=== PATIENT | female | born 1970 | race Caucasian/White ===

== ENCOUNTER 2019-08-06 18:56 | Emergency (ER) | payer OTHER ==
[~2019-08-06] VITALS: Ht 144.8 cm; Wt 69.4 kg
[2019-08-06] MEDS ORDERED: HYZAAR 100-251 EACH (19:15)
[2019-08-06] MEDS ORDERED: HYDROCHLOROTHIAZIDE (19:21)
== END 2019-08-06 21:41 | disposition home or self-care (01) ==
LOC: ER 18:56
DX: B34.9 Viral infection, unspecified (principal); B96.0 Mycoplasma pneumoniae [M. pneumoniae] as the cause of diseases classified elsewhere

== ENCOUNTER 2019-11-21 18:26 | Emergency (ER) | payer OTHER ==
[~2019-11-21] VITALS: Ht 144.8 cm; Wt 67.1 kg
[~2019-11-21 18:26] MED LIST: HYDROCHLOROTHIAZIDE; HYZAAR 100-251 EACH
== END 2019-11-21 21:49 | disposition home or self-care (01) ==
LOC: ER 18:26
DX: D64.89 Other specified anemias (principal); R20.2 Paresthesia of skin

== ENCOUNTER 2019-11-28 12:58 | Emergency (ER) | payer OTHER ==
[~2019-11-28] VITALS: Ht 144.8 cm; Wt 67.1 kg
[2019-11-28] MEDS ORDERED: HYDROCHLOROTHIA25 MG (13:22)
== END 2019-11-28 17:36 | disposition home or self-care (01) ==
LOC: ER 12:58
DX: G45.8 Other transient cerebral ischemic attacks and related syndromes (principal); I10 Essential (primary) hypertension

== ENCOUNTER 2020-06-21 20:53 | Emergency (ER) | payer OTHER ==
[~2020-06-21] VITALS: Ht 144.8 cm; Wt 71.7 kg
[~2020-06-21 20:53] MED LIST changes: +HYDROCHLOROTHIA25 MG
[2020-06-21] MEDS ORDERED: PROAIR RESPICL90 MCG IH (21:30)
[2020-06-22] MEDS ORDERED: CARDURA1 MG PO (10:18)
[2020-06-22] MEDS ORDERED: ALBUTEROL0.63 MG/3 IH (10:18)
[2020-06-22] MEDS ORDERED: COZAAR100 MG PO (10:18)
[2020-06-22] MEDS ORDERED: PROAIR RESPICL90 MCG IH (10:18)
[2020-06-22] MEDS ORDERED: HYDROCHLOROTHIA25 MG PO (10:18)
== END 2020-06-22 11:37 | disposition home or self-care (01) ==
LOC: ER 20:53 → CPU-OBS 21:09 → ER 21:09
DX: I16.0 Hypertensive urgency (principal); I10 Essential (primary) hypertension; R07.89 Other chest pain; J44.1 Chronic obstructive pulmonary disease with (acute) exacerbation
CPT/HCPCS: G0378; G0379; 93005; 82805; 36600; 71250

== ENCOUNTER 2022-07-14 20:51 | Emergency (ER) | payer OTHER ==
[~2022-07-14] VITALS: Ht 144.8 cm; Wt 72.6 kg
[~2022-07-14 20:51] MED LIST changes: +ALBUTEROL0.63 MG/3 IH; +CARDURA1 MG PO; +COZAAR100 MG PO; +HYDROCHLOROTHIA25 MG PO; +PROAIR RESPICL90 MCG IH
[2022-07-15] MEDS ORDERED: ANTIFUNGAL113 GM TOP (10:23)
[2022-07-15] MEDS ORDERED: LOSARTAN-HCTZ1 EAC2 PO (10:23)
== END 2022-07-15 10:29 ==
LOC: ER 20:51
DX: I10 Essential (primary) hypertension (principal); J45.909 Unspecified asthma, uncomplicated; Z88.8 Allergy status to other drugs, medicaments and biological substances; Z20.822 Contact with and (suspected) exposure to COVID-19

== ENCOUNTER 2024-07-11 15:30 | Emergency (ER) | payer OTHER ==
[~2024-07-11] VITALS: Ht 146.1 cm; Wt 77.1 kg
[~2024-07-11 15:30] MED LIST changes: +ANTIFUNGAL113 GM TOP; +LOSARTAN-HCTZ1 EAC2 PO
[2024-07-11] MEDS ORDERED: METFORMIN HCL1000 MG PO (18:13)
[2024-07-11 20:40] LABS: HEMATOCRIT 39.4 % (36.0-45.00); MEAN CELL VOLUME 81.8 fL (80.00-100.00); MEAN CORPUSCULAR HEMOGLOBIN 27.1 pg (27.00-32.0); MEAN CORPUSCULAR HGB CONC 33.1 g/dl (32.0-36.0); PLATELET COUNT 280 K/uL (150-450); RED BLOOD COUNT 4.82 M/uL (4.00-6.00); RED CELL DISTRIBUTION WIDTH 12.9 % (11.5-14.5)
[2024-07-11 21:19] LABS: ALBUMIN 3.6 gm/dL (3.4-5.0); BILIRUBIN TOTAL 0.35 mg/dL (0.3-1.2); CALCIUM 9.6 mg/dL (8.5-10.1); CREATININE SERUM 0.9 mg/dL (0.55-1.02); GFR 64.77; GLOBULINA 4.1 G/DL (2.4-3.5); POTASSIUM 4.12 mEq/L (3.5-5.1); TOTAL PROTEIN 7.7 gm/dL (6.4-8.2)
[2024-07-11] MEDS ORDERED: 0.9 % SODIUM CHLORIDE 500 ML IV ONE (21:45)
[2024-07-11] MEDS ORDERED: INSULIN REGULAR, HUMAN 1,000 UNIT/10 ML UNITS SUBCUTANEO ONE (21:45)
[2024-07-12] MEDS ORDERED: INSULIN REGULAR, HUMAN 1,000 UNIT/10 ML UNITS IV ONE (00:05)
[2024-07-12 03:00] LABS: INR 0.94; PARTIAL THROMBOPLASTIN TIME 24.8 SECONDS (22.0-34.0); PROTHROMBIN TIME 10.3 SECONDS (9.0-11.5)
[2024-07-12 03:06] LABS: PH,URINE 5.5 (5.0-8.0); URINE APPEARANCE Cloudy; URINE BILIRRUBIN Negative (NEGATIVE); URINE BLOOD Negative; URINE COLOR Yellow; URINE KETONE Negative (NEGATIVE); URINE LEUKOCYTE Negative; URINE NITRATE Negative; URINE UROBILINOGEN 0.2 E.U./dl
[2024-07-12 03:09] LABS: URINE BACTERIA 1246.9 uL (0.0-1933); URINE EPITHELIAL CELLS 9.9 uL (0.0-38.8); URINE RBC 5.8 uL (0.0-20.8); URINE WBC 110.4 uL (0.0-23.2)
[2024-07-12 03:18] LABS: URINE CAST 0.29 uL (0.0-1.40); URINE GLUCOSE >=1000 MG/DL (NEGATIVE); URINE PROTEIN 100 (NEGATIVE)
[2024-07-12] MEDS ORDERED: NEURONTIN300 MG PO (11:09)
== END 2024-07-12 12:11 | disposition home or self-care (01) ==
LOC: ER 15:33
PROVIDERS: General Practice; Preventive Medicine Public Health & General Preventive Medicine
DX: R20.2 Paresthesia of skin (principal); R29.898 Other symptoms and signs involving the musculoskeletal system; E11.9 Type 2 diabetes mellitus without complications; Z79.4 Long term (current) use of insulin; I10 Essential (primary) hypertension; Z88.8 Allergy status to other drugs, medicaments and biological substances

== ENCOUNTER 2025-01-07 21:08 | Emergency (ER) | payer OTHER ==
[~2025-01-07] VITALS: Ht 160 cm; Wt 78.0 kg
[~2025-01-07 21:08] MED LIST changes: +METFORMIN HCL1000 MG PO; +NEURONTIN300 MG PO
[2025-01-07] MEDS ORDERED: ENALAPRILAT DIHYDRATE 2.5 MG/2 ML VIAL IV STA (22:10)
[2025-01-07] MEDS ORDERED: CLONIDINE HCL 0.1 MG TABLET PO ONE (22:28)
[2025-01-07] MEDS ORDERED: ENALAPRILAT DIHYDRATE 1.25 MG/ML VIAL IV ONE ×2 (22:28→23:14)
[2025-01-07 23:07] LABS: BASO % 0.5 % (0.1-1.2); EOS # 0.12 (0.04-0.54); EOS % 1.4 % (0.7-7.0); LYMPH # 2.78 (1.18-3.74); LYMPH % 31.5 % (19.3-53.1); MEAN PLATELET VOLUME 11.10 fl (9.4-12.4); MONO # 0.48 (0.24-0.82); MONO % 5.4 % (4.7-12.5); NEUT # 5.36 (1.56-6.13); NEUT % 60.6 % (34.0-71.1); RED CELL DISTRIBUTION WIDTH 12.4 % (11.6-14.4)
[2025-01-07 23:31] LABS: ALT/SGPT 32.0 U/L (12-78); AST/SGOT 17.0 U/L (15-37); BILIRUBIN TOTAL 0.25 mg/dL (0.3-1.2); BUN CREA RATIO 14.0 (7.0-25.0); CREATININE SERUM 1.18 mg/dL (0.55-1.02); GLOBULINA 4.1 G/DL (2.4-3.5); GLUCOSE FASTING 185.0 mg/dL (65-100); OSMOLALITY SERUM 291.0 MOSM/KG (275-295)
[2025-01-07 23:38] LABS: GFR 47.38
[2025-01-08] MEDS ORDERED: MELOXICAM15 MG PO (03:42)
== END 2025-01-08 04:46 ==
LOC: ER 21:15
PROVIDERS: General Practice
DX: M25.561 Pain in right knee (principal); M25.562 Pain in left knee; M54.89 Other dorsalgia; E11.9 Type 2 diabetes mellitus without complications; Z79.84 Long term (current) use of oral hypoglycemic drugs; I10 Essential (primary) hypertension; Z20.822 Contact with and (suspected) exposure to COVID-19

== ENCOUNTER 2025-01-09 02:59 | Emergency (ER) | payer OTHER ==
[~2025-01-09] VITALS: Ht 152.4 cm; Wt 63.5 kg
[~2025-01-09 02:59] MED LIST changes: +MELOXICAM15 MG PO
[2025-01-09 03:23] VITALS: BP 170/90
[2025-01-09] MEDS ORDERED: TRAMADOL HCL 50 MG TABLET PO STA (03:56)
[2025-01-09] MEDS ORDERED: KETOROLAC TROMETHAMINE 60 MG VIAL IM ONE ×3 (03:59→04:01)
[2025-01-09 04:45] LABS: BASO % 0.4 % (0.1-1.2); EOS # 0.02 (0.04-0.54); EOS % 0.1 % (0.7-7.0); LYMPH # 2.62 (1.18-3.74); LYMPH % 18.7 % (19.3-53.1); MEAN PLATELET VOLUME 11.10 fl (9.4-12.4); MONO # 1.00 (0.24-0.82); MONO % 7.1 % (4.7-12.5); NEUT # 10.21 (1.56-6.13); NEUT % 73.1 % (34.0-71.1); RED CELL DISTRIBUTION WIDTH 12.5 % (11.6-14.4)
[2025-01-09] MEDS ORDERED: CHLORHEXIDINE GLUCONATE 120 ML BOTTLE TOP ONE (05:21)
[2025-01-09 05:27] LABS: INR 1.08
[2025-01-09 05:28] LABS: ALT/SGPT 34.0 U/L (12-78); AST/SGOT 48.0 U/L (15-37); BILIRUBIN TOTAL 0.87 mg/dL (0.3-1.2); BUN CREA RATIO 16.0 (7.0-25.0); CREATININE SERUM 1.02 mg/dL (0.55-1.02); GFR 56.06; GLOBULINA 3.9 G/DL (2.4-3.5); GLUCOSE FASTING 173.0 mg/dL (65-100); OSMOLALITY SERUM 292.0 MOSM/KG (275-295)
[2025-01-09 14:34] VITALS: O2SAT 98
== END 2025-01-09 14:36 | disposition home or self-care (01) ==
LOC: ER 02:59
DX: S70.01XA Contusion of right hip, initial encounter (principal); S70.11XA Contusion of right thigh, initial encounter; W18.39XA Other fall on same level, initial encounter; Y93.89 Activity, other specified; Y92.89 Other specified places as the place of occurrence of the external cause; Y99.9 Unspecified external cause status; E11.9 Type 2 diabetes mellitus without complications; Z79.84 Long term (current) use of oral hypoglycemic drugs; Z88.8 Allergy status to other drugs, medicaments and biological substances

== ENCOUNTER 2025-01-10 05:31 | Inpatient (IN) | payer OTHER ==
[~2025-01-10] VITALS: Ht 144.8 cm; Wt 78.0 kg
[2025-01-10 08:16] LABS: BASO % 0.6 % (0.1-1.2); EOS # 0.14 (0.04-0.54); EOS % 1.7 % (0.7-7.0); LYMPH # 2.32 (1.18-3.74); LYMPH % 28.4 % (19.3-53.1); MEAN PLATELET VOLUME 11.10 fl (9.4-12.4); MONO # 0.47 (0.24-0.82); MONO % 5.8 % (4.7-12.5); NEUT # 5.13 (1.56-6.13); NEUT % 62.9 % (34.0-71.1); RED CELL DISTRIBUTION WIDTH 12.6 % (11.6-14.4)
[2025-01-10 08:38] LABS: URINE APPEARANCE Cloudy; URINE BILIRRUBIN Negative (NEGATIVE); URINE BLOOD Small; URINE COLOR Yellow; URINE GLUCOSE Negative (NEGATIVE); URINE KETONE 15 (NEGATIVE); URINE LEUKOCYTE Small; URINE NITRATE Positive; URINE UROBILINOGEN 1.0 E.U./dl
[2025-01-10 08:39] LABS: URINE CAST 3.51 uL (0.0-1.40); URINE EPITHELIAL CELLS 19.2 uL (0.0-38.8); URINE RBC 31.8 uL (0.0-20.8); URINE WBC 147.6 uL (0.0-23.2)
[2025-01-10 09:02] LABS: COCAINE NEGATIVE (NEGATIVE); METHADONE NEGATIVE (NEGATIVE); OPIATES NEGATIVE (NEGATIVE); THC ( Cannabinoids) NEGATIVE (NEGATIVE)
[2025-01-10 09:07] LABS: ALT/SGPT 36.0 U/L (12-78); AST/SGOT 42.0 U/L (15-37); BILIRUBIN TOTAL 0.84 mg/dL (0.3-1.2); BUN CREA RATIO 21.0 (7.0-25.0); CREATININE SERUM 0.85 mg/dL (0.55-1.02); GFR 69.18; GLOBULINA 3.2 G/DL (2.4-3.5); GLUCOSE FASTING 165.0 mg/dL (65-100); OSMOLALITY SERUM 289.0 MOSM/KG (275-295); PHOSPHOKINASE CREATININE 1357.0 U/L (26-192)
[2025-01-10 09:33] LABS: URINE BACTERIA > 9821.5 uL (0.0-1933); URINE PROTEIN 300 (NEGATIVE)
[2025-01-10 09:34] LABS: TYPE CELLS SQUAMOUS
[2025-01-10] MEDS ORDERED: CEFTRIAXONE SODIUM 2,000 MG VIAL ONE (09:56)
[2025-01-10] MEDS ORDERED: 0.9 % SODIUM CHLORIDE 1,000 ML IV SCH (10:00)
[2025-01-10] MEDS ORDERED: CEFTRIAXONE SODIUM 2,000 MG VIAL IV ONE (10:00)
[2025-01-10] MEDS ORDERED: ORPHENADRINE CITRATE 30 MG/ML AMPUL IM ONE (14:00)
[2025-01-10] MEDS ORDERED: ORPHENADRINE CITRATE 30 MG/ML AMPUL ONE (14:13)
[2025-01-10] MEDS ORDERED: CLONIDINE HCL 0.1 MG TABLET PO ONE (16:53)
[2025-01-10] MEDS ORDERED: CLONIDINE HCL 0.1 MG TABLET PO STA (16:54)
[2025-01-11] MEDS ORDERED: TRAMADOL HCL 50 MG TABLET PO ONE (09:00)
[2025-01-11] MEDS ORDERED: FAMOtidine 10 MG/ML (4ML VIAL) IV SCH (09:04)
[2025-01-11] MEDS ORDERED: SULFAMETHOXAZOLE/TRIMETHOPRIM DS 1 TAB PO SCH (09:04)
[2025-01-11] MEDS ORDERED: FAMOTIDINE/PF 20 MG/2 ML VIAL ONE (09:15)
[2025-01-11] MEDS ORDERED: LOSARTAN/HYDROCHLOROTHIAZIDE 1 TAB TABLET PO SCH (09:20)
[2025-01-11 11:09] LABS: INR 1.03
[2025-01-11] MEDS ORDERED: ATORVASTATIN CALCIUM 40 MG TABLET PO SCH (17:14)
[2025-01-11] MEDS ORDERED: CEFTRIAXONE SODIUM 2,000 MG in 0.9 % SODIUM CHLORIDE 100 ML IV SCH (17:14)
[2025-01-11] MEDS ORDERED: ACETAMINOPHEN 500 MG GEL..CAP PO PRN (17:15)
[2025-01-11] MEDS ORDERED: DEXTROSE 50 % IN WATER 0.5 G/ML DISP.SYRIN IV PRN (17:30)
[2025-01-11] MEDS ORDERED: 0.9 % SODIUM CHLORIDE 1,000 ML IV SCH (17:30)
[2025-01-11] MEDS ORDERED: INSULIN LISPRO 1,000 UNIT/10 ML UNITS SUBCUTANEO PRN (17:30)
[2025-01-11] MEDS ORDERED: ENALAPRILAT DIHYDRATE 1.25 MG/ML VIAL IV PRN (18:00)
[2025-01-11] MEDS ORDERED: CEFTRIAXONE SODIUM 2,000 MG VIAL ONE (19:18)
[2025-01-11 19:33] LABS: D DIMER 0.42 MG/L
[2025-01-11 19:34] LABS: INR 1.01
[2025-01-11 19:55] VITALS: BP 145/70
[2025-01-11 20:38] LABS: URINE APPEARANCE Clear; URINE BILIRRUBIN Negative (NEGATIVE); URINE BLOOD Small; URINE COLOR Yellow; URINE GLUCOSE Negative (NEGATIVE); URINE KETONE Negative (NEGATIVE); URINE LEUKOCYTE Trace; URINE NITRATE Negative; URINE PROTEIN 30 (NEGATIVE); URINE UROBILINOGEN 1.0 E.U./dl
[2025-01-11 20:40] LABS: URINE BACTERIA 760.8 uL (0.0-1933); URINE CAST 1.46 uL (0.0-1.40); URINE EPITHELIAL CELLS 7.0 uL (0.0-38.8); URINE RBC 53.0 uL (0.0-20.8); URINE WBC 71.0 uL (0.0-23.2)
[2025-01-11 23:56] VITALS: BP 172/52; O2SAT 98
[2025-01-12] VITALS (15 sets, daily range): BP systolic 142–189; BP diastolic 55–83; O2SAT 94–98
[2025-01-12] MEDS ORDERED: ENALAPRILAT DIHYDRATE 1.25 MG/ML VIAL IV ONE ×2 (00:39→13:51)
[2025-01-12] MEDS ORDERED: AMLODIPINE BESYLATE 5 MG TABLET PO ONE (02:15)
[2025-01-12] MEDS ORDERED: LOSARTAN POTASSIUM 100 MG TABLET PO STA (05:56)
[2025-01-12] MEDS ORDERED: AMLODIPINE BESYLATE 5 MG TABLET PO STA (05:56)
[2025-01-12 06:47] LABS: CHOL HDL RATIO 6.9 (0-5.0)
[2025-01-12 06:53] LABS: HDL 29.0 mg/dl (40-60); LDL 98.0 mg/dl (0-130); TSH 5.12 uIU/mL (0.358-3.74); VLDL 74.0 (0-39)
[2025-01-12] MEDS ORDERED: FAMOTIDINE/PF 20 MG in 0.9 % SODIUM CHLORIDE 8 ML IV PUSH SCH (09:00)
[2025-01-12] MEDS ORDERED: ORPHENADRINE CITRATE 30 MG/ML AMPUL IV STA (13:07)
[2025-01-12] MEDS ORDERED: ORPHENADRINE CITRATE 30 MG/ML AMPUL ONE (13:51)
[2025-01-12] MEDS ORDERED: CAPTOPRIL 12.5 MG TABLET PO SCH (17:00)
[2025-01-12] MEDS ORDERED: ORPHENADRINE CITRATE 30 MG/ML AMPUL IV SCH (21:00)
[2025-01-13] VITALS (9 sets, daily range): BP systolic 167–198; BP diastolic 77–88; O2SAT 85–98
[2025-01-13 07:28] LABS: BASO % 1.0 % (0.1-1.2); EOS # 0.16 (0.04-0.54); EOS % 2.7 % (0.7-7.0); LYMPH # 2.19 (1.18-3.74); LYMPH % 37.3 % (19.3-53.1); MEAN PLATELET VOLUME 11.30 fl (9.4-12.4); MONO # 0.43 (0.24-0.82); MONO % 7.3 % (4.7-12.5); NEUT # 2.98 (1.56-6.13); NEUT % 50.8 % (34.0-71.1); RED CELL DISTRIBUTION WIDTH 12.6 % (11.6-14.4)
[2025-01-13 08:00] LABS: ALT/SGPT 33.0 U/L (12-78); AST/SGOT 23.0 U/L (15-37); BILIRUBIN TOTAL 0.41 mg/dL (0.3-1.2); BUN CREA RATIO 13.0 (7.0-25.0); CREATININE SERUM 0.63 mg/dL (0.55-1.02); GFR 97.75; GLOBULINA 2.9 G/DL (2.4-3.5); GLUCOSE FASTING 109.0 mg/dL (65-100); OSMOLALITY SERUM 278.0 MOSM/KG (275-295); PHOSPHOKINASE CREATININE 278.0 U/L (26-192)
[2025-01-13] MEDS ORDERED: LOSARTAN POTASSIUM 100 MG TABLET PO SCH (09:00)
[2025-01-14 01:26] VITALS: BP 179/90; O2SAT 98
[2025-01-14 02:10] VITALS: O2SAT 96
[2025-01-14 08:15] LABS: URINE APPEARANCE Clear; URINE BILIRRUBIN Negative (NEGATIVE); URINE BLOOD Negative; URINE COLOR Yellow; URINE KETONE Negative (NEGATIVE); URINE LEUKOCYTE Negative; URINE NITRATE Negative; URINE PROTEIN 30 (NEGATIVE); URINE UROBILINOGEN 0.2 E.U./dl
[2025-01-14 08:18] LABS: URINE BACTERIA 27.5 uL (0.0-1933); URINE EPITHELIAL CELLS 2.6 uL (0.0-38.8); URINE RBC 9.8 uL (0.0-20.8); URINE WBC 12.7 uL (0.0-23.2)
[2025-01-14 08:57] VITALS: BP 169/83
[2025-01-14] MEDS ORDERED: NIFEDIPINE 30 MG TAB.SA.OSM PO SCH (09:00)
[2025-01-14] MEDS ORDERED: AMLODIPINE BESYLATE 5 MG TABLET PO SCH (09:00)
[2025-01-14 09:05] LABS: URINE CAST 0.00 uL (0.0-1.40); URINE GLUCOSE 100 MG/DL (NEGATIVE)
[2025-01-14 18:45] VITALS: BP 197/86
[2025-01-15 01:58] VITALS: BP 133/64; O2SAT 99
[2025-01-15 09:02] VITALS: BP 160/79; O2SAT 96
[2025-01-15] MEDS ORDERED: NIFEDIPINE 30 MG TAB.SA.OSM PO SCH (17:00)
[2025-01-15 18:04] VITALS: BP 176/77; O2SAT 98
[2025-01-15 22:19] VITALS: BP 173/70; O2SAT 98
[2025-01-16 01:43] VITALS: BP 147/64; O2SAT 96
[2025-01-16] MEDS ORDERED: INSULIN NPH HUM/REG INSULIN HM 1,000 UNIT/10 ML UNITS SUBCUTANEO SCH (08:00)
[2025-01-16 08:31] VITALS: BP 160/74; O2SAT 98
== END 2025-01-16 16:18 | disposition home or self-care (01) | DRG 65 ==
LOC: ER 05:31 → MEDI 01-11 17:36 → ICU-2 01-11 17:36 → MEDI 01-12 17:04
PROVIDERS: General Practice; Internal Medicine Infectious Disease; ADMIT Internal Medicine; ATTEND Internal Medicine
PROC: BW28ZZZ Computerized Tomography (CT Scan) of Head (ICD-10-PCS; 2025-01-10)
PROC: BW28ZZZ Computerized Tomography (CT Scan) of Head (ICD-10-PCS; 2025-01-10)
PROC: BW2FZZZ Computerized Tomography (CT Scan) of Neck (ICD-10-PCS; 2025-01-10)
PROC: B030ZZZ Magnetic Resonance Imaging (MRI) of Brain (ICD-10-PCS; 2025-01-10)
PROC: B345ZZZ Ultrasonography of Bilateral Common Carotid Arteries (ICD-10-PCS; 2025-01-11)
PROC: B24BZZZ Ultrasonography of Heart with Aorta (ICD-10-PCS; 2025-01-11)
PROC: 4A12X4Z Monitoring of Cardiac Electrical Activity, External Approach (ICD-10-PCS; principal; 2025-01-13)
DX: I62.9 Nontraumatic intracranial hemorrhage, unspecified (principal); I67.3 Progressive vascular leukoencephalopathy; N39.0 Urinary tract infection, site not specified; I67.82 Cerebral ischemia; E11.9 Type 2 diabetes mellitus without complications; Z79.4 Long term (current) use of insulin; E78.5 Hyperlipidemia, unspecified; I73.9 Peripheral vascular disease, unspecified; R41.82 Altered mental status, unspecified; W19.XXXA Unspecified fall, initial encounter; Y93.9 Activity, unspecified; Y92.9 Unspecified place or not applicable; I11.9 Hypertensive heart disease without heart failure
CPT/HCPCS: 70552